=== PATIENT | female | born 1985 | race Caucasian/White ===

== ENCOUNTER 2018-12-08 12:55 | Emergency (ER) | payer OTHER ==
[~2018-12-08 12:55] MED LIST: ISOVUE-370 76%-LOCM 1 ML ONE
[2018-12-08 13:15] LABS: #Basophils 0.1 thou/uL (0.0-0.2); #Eosinphils 0.2 thou/uL (0.0-0.7); #Lymphocytes 2.5 thou/uL (1.20-3.40); #Monocytes 0.5 thou/uL (0.11-0.59); #Neutrophils 5.5 thou/uL (1.40-6.50); %Basophils 0.8 % (0.0-1.0); %Eosinophils 2.6 % (0.0-10.0); %Lymphocytes 28.6 % (21.0-51.0); %Monocytes 5.9 % (0.0-10.0); %Neutrophils 62.1 % (42.0-75.0); Hemoglobin 14.5 g/dL (12.0-16.0); Mean Corpuscular Hemoglobin 32.1 pg (27.0-31.0); Mean Corpuscular Volume 94.6 fL (78.0-98.0); Mean Platelet Volume 7.3 fL (7.4-10.4); Platelet Count 349 thou/uL (130-400); RBC Distribution Width 12.7 % (11.5-14.5); Red Blood Cell (RBC) Count 4.51 mill/uL (4.20-5.40); White Blood Cell (WBC) Count 8.8 thou/uL (4.8-10.8)
--- NOTE | 2018-12-08 13:22 | CT ---
FCT Brain WO Con: 12/08/2018 1:07 PM CLINICAL HISTORY: New onset stroke, altered mental status, dysarthria, blurred vision and right-sided weakness. COMPARISON: None. FINDINGS: Hemorrhage: None. Ventricular system: Normal in size and morphology for the patient's age. Cerebral parenchyma: Normal Midline shift: None. Calvarium: Normal. Visualized Paranasal sinuses: Mild mucosal prominence. IMPRESSION: No acute intracranial abnormalities. If symptoms persist, consider follow-up with brain MRI for more sensitive evaluation. Telephone call to Dr. Ontiveros, 1312 hours, 12/08/2018.
[2018-12-08 13:31] LABS: ALT (SGPT) 12 U/L (8-55); AST (SGOT) 11 U/L (5-34); Albumin 4.5 g/dL (3.5-5.0); Alkaline Phosphatase 61 U/L (40-150); Anion Gap 14 mmol/L (10-20); BUN (Urea Nitrogen) 10 mg/dL (7.0-18.7); Bilirubin, Total 0.4 mg/dL (0.2-1.2); Calc. Creatinine Clearance 0 mL/min (70-130); Calcium 9.7 mg/dL (7.8-10.44); Carbon Dioxide 26 mmol/L (22-29); Chloride 100 mmol/L (98-107); Estimated GFR-MDRD 87; Globulin 3.5 g/dL (2.4-3.5); Glucose 87 mg/dL (70-105); Potassium 3.2 mmol/L (3.5-5.1); Sodium 137 mmol/L (136-145)
--- NOTE | 2018-12-08 13:31 | CT ---
FCTA of the head with and without IV contrast and 3-D reformatted imaging. CTA of the neck with IV contrast and 3-D reformatted imaging 3 D Volume Rendering: DATE: 12/08/2018 1:07 PM HISTORY: Dysarthria, right-sided weakness COMPARISON: None FINDINGS: Right: CCA:No significant stenosis. ICA:No significant stenosis. MCA:No significant stenosis. ANAMARIA:No significant stenosis. SALES AND CATERING COORDINATOR:No significant stenosis. LEFT: CCA:No significant stenosis. ICA:No significant stenosis. MCA:No significant stenosis. ANAMARIA:No significant stenosis. SALES AND CATERING COORDINATOR:No significant stenosis. Vertebrobasilar System: Left Vertebral:No significant stenosis. Right Vertebral:No significant stenosis. Basilar:No significant stenosis. IMPRESSION: No hemodynamically significant stenosis, occlusion or aneurysmal dilation.
[2018-12-08] MEDS ORDERED: Acetaminophen 500 MG TAB ONE (13:33)
[2018-12-08] MEDS ORDERED: diphenhydrAMINE 50 MG/ML VIAL ONE (13:33)
[2018-12-08] MEDS ORDERED: Metoclopramide HCl 10 MG/2 ML VIAL ONE (13:33)
--- NOTE | 2018-12-09 15:30 | CT ---
FCTA of the head with and without IV contrast and 3-D reformatted imaging. CTA of the neck with IV contrast and 3-D reformatted imaging 3 D Volume Rendering: DATE: 12/08/2018 1:07 PM HISTORY: Dysarthria, right-sided weakness COMPARISON: None FINDINGS: Right: CCA:No significant stenosis. ICA:No significant stenosis. MCA:No significant stenosis. ANAMARIA:No significant stenosis. MOTEL FRONT DESK CLERK:No significant stenosis. LEFT: CCA:No significant stenosis. ICA:No significant stenosis. MCA:No significant stenosis. ANAMARIA:No significant stenosis. MOTEL FRONT DESK CLERK:No significant stenosis. Vertebrobasilar System: Left Vertebral:No significant stenosis. Right Vertebral:No significant stenosis. Basilar:No significant stenosis. IMPRESSION: No hemodynamically significant stenosis, occlusion or aneurysmal dilation. Transcribed Date/Time: 12/09/2018 3:29 PM
== END 2018-12-08 15:04 | disposition home or self-care (01) ==
LOC: ERS 12:55
DX: M54.2 Cervicalgia (principal); R51 Headache; I10 Essential (primary) hypertension; G43.809 Other migraine, not intractable, without status migrainosus; F17.210 Nicotine dependence, cigarettes, uncomplicated; F41.9 Anxiety disorder, unspecified; Z79.899 Other long term (current) drug therapy
CPT/HCPCS: 36416; 70450; 70496; 70498; 80053; 85025; 93005; 96361; 96374; 96375; J1200; J2765; Q9966

== ENCOUNTER 2020-04-28 06:51 | Day surgery (SDC) | payer OTHER ==
[2020-04-27 11:39] VITALS: BMI 22.6
[2020-04-28] MEDS ORDERED: Bacitracin Zinc Ointment 30 gm TUBE ONE (08:14)
[2020-04-28] MEDS ORDERED: Lidocaine 1% w/Epinephrine 1:100K 20 ML VIAL ONE (08:14)
[2020-04-28] MEDS ORDERED: Midazolam HCl 2 mg/2 ml Vial ONE (08:15)
[2020-04-28] MEDS ORDERED: Fentanyl 100 MCG/2 ML VIAL ONE ×7 (08:15→11:03)
[2020-04-28 08:20] LABS: Hemoglobin 14.3 g/dL (12.0-16.0)
[2020-04-28] MEDS ORDERED: Lidocaine 2% Jelly 5 ML TUBE ONE (08:23)
[2020-04-28 08:28] LABS: BHCG - Serum Negative (NEGATIVE); Pregs Control Background? CLEAR/WHITE (CLR/WHITE); Pregs Control Bar Appear? YES (CONTROL BAR)
[2020-04-28] MEDS ORDERED: Ondansetron PF 4 MG/2 ML Vial ONE (10:21)
[2020-04-28] MEDS ORDERED: Lidocaine 1% PF 5 ML VIAL ONE (10:21)
[2020-04-28] MEDS ORDERED: Dexamethasone 20 MG/5 ML VIAL ONE (10:21)
[2020-04-28] MEDS ORDERED: PROPOFOL 200 MG/20 ML VIAL ONE (10:21)
[2020-04-28] MEDS ORDERED: Promethazine HCl 25 MG/ML VIAL ONE (11:03)
[2020-04-28] MEDS ORDERED: Hydrocodone-Acetamin 15 ML UDCUP ONE (11:48)
[2020-04-28] MEDS ORDERED: Ibuprofen 800 MG TAB PO SCH (12:30)
--- NOTE | 2020-04-29 05:23 | OP ---
DATE OF PROCEDURE: 04/28/2020 PREOPERATIVE DIAGNOSIS: Severe left nasolabial abscess. POSTOPERATIVE DIAGNOSIS: Severe left nasolabial abscess. PROCEDURE PERFORMED: Incision and drainage with packing of left nasolabial abscess. PROCEDURE IN DETAIL: After consent was obtained, the patient was identified, brought to the operating room and placed on the operating room table in supine position. Mask anesthesia was obtained. The patient was positioned for surgery. The area was infiltrated with 1% lidocaine with 1:100,000 epinephrine and the abscess was entered transnasally and hemostats were spread down to the level of the nasolabial area. A small puncture was made intraorally to facilitate transoral drainage as well in the dependent portion of the abscess. Packing was then placed within the confines of the abscess with a small amount extruded from the nose. A sterile dressing was applied. Cultures were obtained. Job ID: [id number]
== END 2020-04-28 12:45 | disposition home or self-care (01) ==
LOC: SDC 06:51
PROVIDERS: ATTEND Specialist
PROC: 0H91XZZ Drainage of Face Skin, External Approach (ICD-10-PCS; principal; 2020-04-28)
DX: J34.0 Abscess, furuncle and carbuncle of nose (principal); J45.909 Unspecified asthma, uncomplicated; F17.210 Nicotine dependence, cigarettes, uncomplicated; F41.9 Anxiety disorder, unspecified; I10 Essential (primary) hypertension; Z79.899 Other long term (current) drug therapy
CPT/HCPCS: 36415; 84703; 85014; 85018; 87070; 87077; 87186; 87205; J1100; J2250; J2405; J2550; J2704; J3010; J3490

== ENCOUNTER 2020-11-14 00:10 | Observation (INO) | payer BC ==
[2020-11-14 01:55] LABS: #Basophils 0.1 thou/uL (0.0-0.2); #Eosinphils 0.2 thou/uL (0.0-0.7); #Lymphocytes 1.7 thou/uL (1.20-3.40); #Monocytes 0.6 thou/uL (0.11-0.59); #Neutrophils 6.1 thou/uL (1.40-6.50); %Basophils 0.8 % (0.0-1.0); %Eosinophils 2.8 % (0.0-10.0); %Lymphocytes 19.8 % (21.0-51.0); %Monocytes 6.5 % (0.0-10.0); %Neutrophils 70.1 % (42.0-75.0); Hemoglobin 13.5 g/dL (12.0-16.0); Mean Corpuscular Hemoglobin 31.8 pg (27.0-31.0); Mean Corpuscular Volume 93.6 fL (78.0-98.0); Mean Platelet Volume 7.1 fL (7.4-10.4); Platelet Count 368 thou/uL (130-400); RBC Distribution Width 11.6 % (11.5-14.5); Red Blood Cell (RBC) Count 4.24 mill/uL (4.20-5.40); White Blood Cell (WBC) Count 8.8 thou/uL (4.8-10.8)
[2020-11-14] MEDS ORDERED: Acetaminophen 650 MG Suppository PR PRN (02:02)
[2020-11-14] MEDS ORDERED: Ondansetron ODT 4 MG TAB PO PRN (02:02)
[2020-11-14] MEDS ORDERED: Acetaminophen 325 MG TAB PO PRN (02:02)
[2020-11-14] MEDS ORDERED: Electrolyte Replacement Protocol 1 EACH FS ONE (02:04)
[2020-11-14 02:07] VITALS: BMI 24.2
[2020-11-14 02:15] LABS: Anion Gap 11 mmol/L (10-20); BUN (Urea Nitrogen) 8 mg/dL (7.0-18.7); Calc. Creatinine Clearance 118 mL/min (70-130); Calcium 9.2 mg/dL (7.8-10.44); Carbon Dioxide 24 mmol/L (22-29); Chloride 105 mmol/L (98-107); Glucose 100 mg/dL (70-105); Sodium 136 mmol/L (136-145)
[2020-11-14] MEDS ORDERED: Electrolyte Replacement Protocol FS PRN (02:15)
[2020-11-14] MEDS: Phenazopyridine HCl 100 MG TAB PO SCH ×2 (04:33→12:07)
[2020-11-14 06:15] LABS: Bacteria/HPF None Seen HPF (None Seen); Bilirubin Negative (Negative); Blood, Urine Negative (Negative); Clarity Clear (Clear); Glucose, Urine (Dipstick) Normal (Negative); Ketone, Urine Negative (Negative); Leukocyte Negative Leu/uL (Negative); Nitrite Negative (Negative); Protein, Urine (Dipstick) Negative (Neg-Trace); RBC/HPF 0-3 HPF (0-3); Specific Gravity, Urine 1.022 (1.002-1.036); Squamous Epithelial None Seen HPF (0-3); Urobilinogen Normal mg/dL (Less than 2); WBC/HPF 0-3 HPF (0-3); pH, Urine 5.5 (5.0-9.0)
[2020-11-14 06:19] LABS: Urine Culture Reflex No No
[2020-11-14] MEDS ORDERED: Magnesium 2 GM/50 ML 2 GM in Premix Bag 1 BAG IVPB SCH (06:30)
[2020-11-14] MEDS ORDERED: Loperamide HCl 2 MG CAP PO PRN (10:40)
[2020-11-14] MEDS ORDERED: Loperamide HCl 2 MG CAP PO SCH (10:45)
[2020-11-14 13:00] LABS: SARS-CoV-2 PCR NAA for Saliva Not Detected (NotDetected)
[2020-11-14 15:14] VITALS: BP 117/79; TEMP 98.2
== END 2020-11-14 16:13 | disposition home or self-care (01) ==
LOC: 2NO 00:10
PROVIDERS: ADMIT Internal Medicine; ATTEND Family Medicine
DX: E87.6 Hypokalemia (principal); K52.9 Noninfective gastroenteritis and colitis, unspecified; R33.8 Other retention of urine; F41.9 Anxiety disorder, unspecified; F32.9 Major depressive disorder, single episode, unspecified; I10 Essential (primary) hypertension; K21.9 Gastro-esophageal reflux disease without esophagitis; J45.909 Unspecified asthma, uncomplicated; Z79.899 Other long term (current) drug therapy
CPT/HCPCS: 36415; 36416; 80048; 81001; 83735; 85025; 87324; 87449; 87635; 96374; G0378; J3475; U0003; U0005

== ENCOUNTER 2021-05-28 12:44 | Emergency (ER) | payer BC ==
[2021-05-28] MEDS ORDERED: Ketorolac Tromethamine 30 MG/ML VIAL ONE (14:15)
[2021-05-28] MEDS ORDERED: Cyclobenzaprine 10 MG TAB ONE (14:15)
== END 2021-05-28 15:24 | disposition home or self-care (01) ==
LOC: ERS 12:44
DX: M54.5 Low back pain (principal); M53.3 Sacrococcygeal disorders, not elsewhere classified; J45.909 Unspecified asthma, uncomplicated; I10 Essential (primary) hypertension; F17.210 Nicotine dependence, cigarettes, uncomplicated; G43.909 Migraine, unspecified, not intractable, without status migrainosus; Z79.899 Other long term (current) drug therapy; W18.30XA Fall on same level, unspecified, initial encounter
CPT/HCPCS: 72100; 96372; J1885

== ENCOUNTER 2021-06-05 08:35 | Emergency (ER) | payer BC ==
[2021-06-05] MEDS ORDERED: Iopamidol-370 76% 500 ML 1 ML ONE (09:50)
[2021-06-05] MEDS ORDERED: Morphine 4 MG/ML VIAL ONE ×2 (10:12→11:36)
[2021-06-05] MEDS ORDERED: Ondansetron PF 4 MG/2 ML Vial ONE (10:12)
[2021-06-05 10:14] LABS: #Eosinphils 0.2 thou/uL (0.0-0.7); #Lymphocytes 1.1 thou/uL (1.20-3.40); #Monocytes 0.4 thou/uL (0.11-0.59); #Neutrophils 3.3 thou/uL (1.40-6.50); %Basophils 0.9 % (0.0-1.0); %Eosinophils 3.8 % (0.0-10.0); %Lymphocytes 22.5 % (21.0-51.0); %Monocytes 7.5 % (0.0-10.0); %Neutrophils 65.3 % (42.0-75.0); Hemoglobin 12.5 g/dL (12.0-16.0); Mean Corpuscular HGB CONC 31.6 g/dL (32.0-36.0); Mean Corpuscular Hemoglobin 30.3 pg (27.0-31.0); Mean Corpuscular Volume 96.1 fL (78.0-98.0); Mean Platelet Volume 7.3 fL (7.4-10.4); Platelet Count 297 thou/uL (130-400); RBC Distribution Width 12.6 % (11.5-14.5); Red Blood Cell (RBC) Count 4.12 mill/uL (4.20-5.40); White Blood Cell (WBC) Count 5.1 thou/uL (4.8-10.8)
[2021-06-05 10:36] LABS: BHCG - Serum Negative (NEGATIVE); Pregs Control Background? CLEAR/WHITE (CLR/WHITE); Pregs Control Bar Appear? YES (CONTROL BAR)
[2021-06-05 10:37] LABS: Anion Gap 12 mmol/L (10-20); BUN (Urea Nitrogen) 10 mg/dL (7.0-18.7); Calc. Creatinine Clearance 0 mL/min (70-130); Carbon Dioxide 22 mmol/L (22-29); Chloride 105 mmol/L (98-107); Sodium 135 mmol/L (136-145)
[2021-06-05 10:38] LABS: Calcium 9.2 mg/dL (7.8-10.44); Glucose 91 mg/dL (70-105)
[2021-06-05] MEDS ORDERED: Ketorolac Tromethamine 30 MG/ML VIAL ONE (11:37)
== END 2021-06-05 13:38 | disposition home or self-care (01) ==
LOC: ERS 08:35
DX: M54.5 Low back pain (principal); M79.10 Myalgia, unspecified site; F17.210 Nicotine dependence, cigarettes, uncomplicated; I10 Essential (primary) hypertension; J45.909 Unspecified asthma, uncomplicated; G43.909 Migraine, unspecified, not intractable, without status migrainosus; Z79.899 Other long term (current) drug therapy; W18.30XA Fall on same level, unspecified, initial encounter
CPT/HCPCS: 36415; 74177; 80048; 84703; 85025; 96374; 96375; 96376; J1885; J2270; J2405; Q9967

== ENCOUNTER 2021-07-16 19:29 | Emergency (ER) | payer BC | END 2021-07-16 21:35 | disposition home or self-care (01) | LOC: ERS 19:29 | DX: K60.2 Anal fissure, unspecified (principal); G43.909 Migraine, unspecified, not intractable, without status migrainosus | CPT/HCPCS: 99283 ==

== ENCOUNTER 2021-08-06 19:26 | Emergency (ER) | payer BC ==
[2021-08-06 19:56] LABS: Bacteria/HPF 4+ HPF (None Seen); Bilirubin Negative (Negative); Blood, Urine Negative (Negative); Clarity Turbid (Clear); Glucose, Urine (Dipstick) Normal (Negative); Ketone, Urine Negative (Negative); Leukocyte 500 Leu/uL (Negative); Mucous/LPF Rare LPF (<2+); Nitrite Negative (Negative); Pregnancy Test - Urine (BHCG) Negative (Negative); Pregu Control Background? CLEAR/WHITE (CLR/WHITE); Pregu Control Bar Appear? YES (CONTROL BAR); Protein, Urine (Dipstick) Negative (Neg-Trace); Renal Epithelial 0-3 HPF (None Seen); Specific Gravity 1.016 (1.002-1.036); Specific Gravity, Urine 1.016 (1.002-1.036); Squamous Epithelial Greater than 50 HPF (0-3); Urobilinogen Normal mg/dL (Less than 2)
[2021-08-06] MEDS ORDERED: Ketorolac Tromethamine 30 MG/ML VIAL ONE (20:03)
[2021-08-06 20:12] LABS: #Eosinphils 0.2 thou/uL (0.0-0.7); #Lymphocytes 1.8 thou/uL (1.20-3.40); #Monocytes 0.4 thou/uL (0.11-0.59); %Basophils 0.2 % (0.0-1.0); %Eosinophils 2.2 % (0.0-10.0); %Lymphocytes 24.6 % (21.0-51.0); %Monocytes 5.1 % (0.0-10.0); %Neutrophils 67.9 % (42.0-75.0); Hemoglobin 12.1 g/dL (12.0-16.0); Mean Corpuscular HGB CONC 33.8 g/dL (32.0-36.0); Mean Corpuscular Hemoglobin 30.7 pg (27.0-31.0); Mean Corpuscular Volume 90.9 fL (78.0-98.0); Mean Platelet Volume 6.9 fL (7.4-10.4); Platelet Count 384 thou/uL (130-400); RBC Distribution Width 12.1 % (11.5-14.5); Red Blood Cell (RBC) Count 3.95 mill/uL (4.20-5.40); White Blood Cell (WBC) Count 7.3 thou/uL (4.8-10.8)
[2021-08-06 20:32] LABS: ALT (SGPT) 15 U/L (8-55); AST (SGOT) 15 U/L (5-34); Albumin 3.7 g/dL (3.5-5.0); Alkaline Phosphatase 54 U/L (40-110); Anion Gap 10 mmol/L (10-20); BUN (Urea Nitrogen) 6 mg/dL (7.0-18.7); Bilirubin, Total 0.3 mg/dL (0.2-1.2); Calc. Creatinine Clearance 0 mL/min (70-130); Calcium 9.2 mg/dL (7.8-10.44); Carbon Dioxide 24 mmol/L (22-29); Chloride 106 mmol/L (98-107); Globulin 2.7 g/dL (2.4-3.5); Glucose 126 mg/dL (70-105); Lipase 37 U/L (8-78); Potassium 3.1 mmol/L (3.5-5.1); Protein, Total 6.4 g/dL (6.0-8.3); Sodium 137 mmol/L (136-145)
[2021-08-06 20:33] LABS: BHCG - Serum Negative (NEGATIVE); Pregs Control Background? CLEAR/WHITE (CLR/WHITE); Pregs Control Bar Appear? YES (CONTROL BAR)
[2021-08-06] MEDS ORDERED: Morphine 4 MG/ML VIAL ONE (21:07)
== END 2021-08-06 21:35 | disposition home or self-care (01) ==
LOC: ERS 19:26
DX: N39.0 Urinary tract infection, site not specified (principal); G43.909 Migraine, unspecified, not intractable, without status migrainosus; Z79.899 Other long term (current) drug therapy
CPT/HCPCS: 36415; 74176; 80053; 81003; 81015; 81025; 83690; 84703; 85025; 87086; 96365; 96367; J1885; J2270

== ENCOUNTER 2021-10-06 14:08 | Outpatient (CLI) | payer BC | END 2021-10-06 14:09 | disposition home or self-care (01) | LOC: BICMAMMO 14:08 | PROVIDERS: ATTEND Nurse Practitioner Family | DX: N63.23 Unspecified lump in the left breast, lower outer quadrant (principal) | CPT/HCPCS: 77066; G0279 ==

== ENCOUNTER 2021-10-07 17:14 | Emergency (ER) | payer BC ==
[2021-10-07] MEDS ORDERED: Ketorolac Tromethamine 30 MG/ML VIAL ONE (17:48)
[2021-10-07] MEDS ORDERED: Metoclopramide HCl 10 MG/2 ML VIAL ONE (17:48)
[2021-10-07] MEDS ORDERED: diphenhydrAMINE 50 MG/ML VIAL ONE (17:48)
== END 2021-10-07 21:14 | disposition home or self-care (01) ==
LOC: ERS 17:14 → EEVIPCON 17:14 → ERS 21:14
DX: B34.9 Viral infection, unspecified (principal); G43.909 Migraine, unspecified, not intractable, without status migrainosus
CPT/HCPCS: 70450; 96365; 96375; J1200; J1885; J2765

== ENCOUNTER 2021-10-16 22:31 | Emergency (ER) | payer BC ==
[2021-10-17] MEDS ORDERED: diphenhydrAMINE 50 MG/ML VIAL ONE (00:34)
[2021-10-17 00:44] LABS: #Eosinphils 0.1 thou/uL (0.0-0.7); #Lymphocytes 1.1 thou/uL (1.20-3.40); #Monocytes 0.4 thou/uL (0.11-0.59); #Neutrophils 6.2 thou/uL (1.40-6.50); %Basophils 0.4 % (0.0-1.0); %Eosinophils 1.2 % (0.0-10.0); %Lymphocytes 13.7 % (21.0-51.0); %Monocytes 4.7 % (0.0-10.0); Hemoglobin 12.8 g/dL (12.0-16.0); Mean Corpuscular HGB CONC 33.2 g/dL (32.0-36.0); Mean Corpuscular Hemoglobin 28.9 pg (27.0-31.0); Mean Platelet Volume 7.3 fL (7.4-10.4); Platelet Count 279 thou/uL (130-400); RBC Distribution Width 13.4 % (11.5-14.5); Red Blood Cell (RBC) Count 4.44 mill/uL (4.20-5.40); White Blood Cell (WBC) Count 7.8 thou/uL (4.8-10.8)
[2021-10-17 00:50] LABS: BHCG - Serum Negative (NEGATIVE); Pregs Control Background? CLEAR/WHITE (CLR/WHITE); Pregs Control Bar Appear? YES (CONTROL BAR)
[2021-10-17 01:03] LABS: ALT (SGPT) 16 U/L (8-55); AST (SGOT) 20 U/L (5-34); Alkaline Phosphatase 52 U/L (40-110); Anion Gap 13 mmol/L (10-20); BUN (Urea Nitrogen) 4 mg/dL (7.0-18.7); Bilirubin, Total Less than 0.2 mg/dL (0.2-1.2); Calc. Creatinine Clearance 0 mL/min (70-130); Calcium 9.3 mg/dL (7.8-10.44); Carbon Dioxide 23 mmol/L (22-29); Chloride 105 mmol/L (98-107); Glucose 102 mg/dL (70-105); Potassium 3.5 mmol/L (3.5-5.1); Sodium 137 mmol/L (136-145)
[2021-10-17] MEDS ORDERED: HYDROcodone/Acetaminophen 5/325 mg Tablet ONE (02:00)
== END 2021-10-17 02:10 | disposition home or self-care (01) ==
LOC: ERS 22:31
DX: R07.9 Chest pain, unspecified (principal); R20.2 Paresthesia of skin; T50.995A Adverse effect of other drugs, medicaments and biological substances, initial encounter; G43.909 Migraine, unspecified, not intractable, without status migrainosus
CPT/HCPCS: 71045; 84484; 84703; 93005; 96374; J1200

== ENCOUNTER 2021-12-14 19:37 | Emergency (ER) | payer BC ==
[2021-12-14] MEDS ORDERED: Acetaminophen 500 MG TAB ONE (22:23)
[2021-12-14 22:58] LABS: #Eosinphils 0.3 thou/uL (0.0-0.7); #Lymphocytes 2.5 thou/uL (1.20-3.40); #Monocytes 0.6 thou/uL (0.11-0.59); #Neutrophils 3.3 thou/uL (1.40-6.50); %Basophils 0.4 % (0.0-1.0); %Eosinophils 3.8 % (0.0-10.0); %Lymphocytes 36.9 % (21.0-51.0); %Monocytes 9.3 % (0.0-10.0); %Neutrophils 49.6 % (42.0-75.0); Hemoglobin 10.9 g/dL (12.0-16.0); Mean Corpuscular HGB CONC 32.5 g/dL (32.0-36.0); Mean Corpuscular Hemoglobin 30.1 pg (27.0-31.0); Mean Corpuscular Volume 92.8 fL (78.0-98.0); Mean Platelet Volume 7.6 fL (7.4-10.4); Platelet Count 346 thou/uL (130-400); RBC Distribution Width 13.9 % (11.5-14.5); Red Blood Cell (RBC) Count 3.63 mill/uL (4.20-5.40); White Blood Cell (WBC) Count 6.7 thou/uL (4.8-10.8)
[2021-12-14 23:03] LABS: Bilirubin Negative (Negative); Blood, Urine Negative (Negative); Clarity Clear (Clear); Glucose, Urine (Dipstick) Normal (Negative); Ketone, Urine Trace mg/dL (Negative); Leukocyte Negative Leu/uL (Negative); Nitrite Negative (Negative); Protein, Urine (Dipstick) 10 mg/dL (Neg-Trace); pH, Urine 6.5 (5.0-9.0)
[2021-12-14 23:04] LABS: Pregnancy Test - Urine (BHCG) Negative (Negative); Pregu Control Background? CLEAR/WHITE (CLR/WHITE); Pregu Control Bar Appear? YES (CONTROL BAR)
[2021-12-14 23:15] LABS: ALT (SGPT) Less than 7 U/L (8-55); AST (SGOT) 12 U/L (5-34); Alkaline Phosphatase 51 U/L (40-110); Anion Gap 12 mmol/L (10-20); BUN (Urea Nitrogen) 12 mg/dL (7.0-18.7); Bilirubin, Total Less than 0.2 mg/dL (0.2-1.2); Calc. Creatinine Clearance 0 mL/min (70-130); Calcium 9.2 mg/dL (7.8-10.44); Carbon Dioxide 22 mmol/L (22-29); Chloride 107 mmol/L (98-107); Globulin 2.6 g/dL (2.4-3.5); Glucose 91 mg/dL (70-105); Lipase 45 U/L (8-78); Potassium 3.8 mmol/L (3.5-5.1); Protein, Total 6.6 g/dL (6.0-8.3); Sodium 137 mmol/L (136-145)
== END 2021-12-15 00:11 | disposition home or self-care (01) ==
LOC: ERS 19:37
DX: K59.00 Constipation, unspecified (principal); Z87.891 Personal history of nicotine dependence
CPT/HCPCS: 36415; 80053; 81003; 81025; 83690; 85025; 99283

== ENCOUNTER 2022-04-10 14:28 | Emergency (ER) | payer BC ==
[~2022-04-10 14:28] MED LIST changes: -ISOVUE-370 76%-LOCM 1 ML ONE; +Iopamidol-370 76% 500 ML 1 ML ONE
[2022-04-10 15:34] LABS: #Basophils 0.1 thou/uL (0.0-0.2); #Eosinphils 0.2 thou/uL (0.0-0.7); #Lymphocytes 1.8 thou/uL (1.20-3.40); #Monocytes 0.6 thou/uL (0.11-0.59); #Neutrophils 4.1 thou/uL (1.40-6.50); %Basophils 0.8 % (0.0-1.0); %Eosinophils 3.6 % (0.0-10.0); %Lymphocytes 26.5 % (21.0-51.0); %Monocytes 8.9 % (0.0-10.0); %Neutrophils 60.2 % (42.0-75.0); Hemoglobin 12.1 g/dL (12.0-16.0); Mean Corpuscular HGB CONC 33.2 g/dL (32.0-36.0); Mean Corpuscular Hemoglobin 29.3 pg (27.0-31.0); Mean Corpuscular Volume 88.4 fL (78.0-98.0); Mean Platelet Volume 7.7 fL (7.4-10.4); Platelet Count 409 thou/uL (130-400); RBC Distribution Width 13.5 % (11.5-14.5); Red Blood Cell (RBC) Count 4.12 mill/uL (4.20-5.40); White Blood Cell (WBC) Count 6.8 thou/uL (4.8-10.8)
[2022-04-10 15:37] LABS: BHCG - Serum Negative (NEGATIVE); Pregs Control Background? CLEAR/WHITE (CLR/WHITE); Pregs Control Bar Appear? YES (CONTROL BAR)
[2022-04-10 15:51] LABS: ALT (SGPT) 10 U/L (8-55); AST (SGOT) 14 U/L (5-34); Albumin 4.7 g/dL (3.5-5.0); Alkaline Phosphatase 51 U/L (40-110); Anion Gap 15 mmol/L (10-20); BUN (Urea Nitrogen) 11 mg/dL (7.0-18.7); Bilirubin, Total 0.4 mg/dL (0.2-1.2); Calc. Creatinine Clearance 0 mL/min (70-130); Calcium 9.9 mg/dL (7.8-10.44); Carbon Dioxide 23 mmol/L (22-29); Chloride 103 mmol/L (98-107); Estimated GFR 95; Globulin 3.4 g/dL (2.4-3.5); Glucose 84 mg/dL (70-105); Lipase 21 U/L (8-78); Potassium 3.9 mmol/L (3.5-5.1); Protein, Total 8.1 g/dL (6.0-8.3); Sodium 137 mmol/L (136-145)
[2022-04-10 17:27] LABS: Bilirubin Negative (Negative); Blood, Urine Negative (Negative); Clarity Clear (Clear); Glucose, Urine (Dipstick) Normal (Negative); Ketone, Urine Negative (Negative); Leukocyte Negative Leu/uL (Negative); Nitrite Negative (Negative); Protein, Urine (Dipstick) Negative (Neg-Trace); Specific Gravity, Urine 1.015 (1.002-1.036); Urobilinogen Normal mg/dL (Less than 2); pH, Urine 5.5 (5.0-9.0)
[2022-04-10 17:30] LABS: Pregnancy Test - Urine (BHCG) Negative (Negative); Pregu Control Background? CLEAR/WHITE (CLR/WHITE); Pregu Control Bar Appear? YES (CONTROL BAR); Specific Gravity 1.015 (1.002-1.036)
[2022-04-10] MEDS ORDERED: Dicyclomine 20 MG TAB ONE (18:28)
[2022-04-10] MEDS ORDERED: Ketorolac Tromethamine 30 MG/ML VIAL ONE (18:28)
[2022-04-10] MEDS ORDERED: Ondansetron PF 4 MG/2 ML Vial ONE (18:29)
== END 2022-04-10 18:55 | disposition home or self-care (01) ==
LOC: ERS 14:28
DX: R10.32 Left lower quadrant pain (principal); R19.7 Diarrhea, unspecified; R10.814 Left lower quadrant abdominal tenderness; Z87.891 Personal history of nicotine dependence
CPT/HCPCS: 36415; 74177; 80053; 81003; 81025; 83690; 84703; 85025; 94760; 96374; 96375; J1885; J2405; Q9967

== ENCOUNTER 2022-10-26 12:33 | Inpatient (IN) | payer BC ==
[2022-10-26] MEDS ORDERED: Acetaminophen 325 MG TAB PO PRN (17:39)
[2022-10-26] MEDS ORDERED: HYDROmorphone 0.5 MG/0.5 ML SYRINGE SLOW IVP SCH (18:00)
[2022-10-26] MEDS ORDERED: Lidocaine 2% Viscous Solution 10 ML, Aluminum & Magnesium Hydroxide 30 ML SSW SCH (18:00)
[2022-10-26] MEDS ORDERED: Ketorolac Tromethamine 30 MG/ML VIAL IVP SCH (18:15)
[2022-10-26] MEDS ORDERED: diphenhydrAMINE 25 MG CAP PO PRN (18:38)
[2022-10-26 19:34] VITALS: BMI 24.7
[2022-10-26] MEDS: clonazePAM 0.5 MG TAB PO SCH (20:25)
[2022-10-26] MEDS: Nebivolol HCl 5 MG TAB PO SCH (20:25)
[2022-10-27] MEDS ORDERED: Ketorolac Tromethamine 30 MG/ML VIAL IVP SCH (01:00)
[2022-10-27 05:23] LABS: #Eosinphils 0.1 thou/uL (0.0-0.7); #Lymphocytes 2.1 thou/uL (1.20-3.40); #Monocytes 0.5 thou/uL (0.11-0.59); #Neutrophils 2.9 thou/uL (1.40-6.50); %Basophils 0.4 % (0.0-1.0); %Eosinophils 2.4 % (0.0-10.0); %Lymphocytes 37.3 % (21.0-51.0); %Monocytes 8.6 % (0.0-10.0); %Neutrophils 51.3 % (42.0-75.0); Hemoglobin 12.5 g/dL (12.0-16.0); Mean Corpuscular HGB CONC 33.9 g/dL (32.0-36.0); Mean Corpuscular Hemoglobin 30.4 pg (27.0-31.0); Mean Corpuscular Volume 89.7 fl (78.0-98.0); Mean Platelet Volume 7.7 fL (7.4-10.4); Platelet Count 276 10x3/uL (130-400); Red Blood Cell (RBC) Count 4.11 mill/uL (4.20-5.40); White Blood Cell (WBC) Count 5.6 10x3/uL (4.8-10.8)
[2022-10-27 05:40] LABS: Anion Gap 10 mmol/L (10-20); BUN (Urea Nitrogen) 4 mg/dL (7.0-18.7); Calc. Creatinine Clearance 113 mL/min (70-130); Calcium 9.2 mg/dL (7.8-10.44); Carbon Dioxide 29 mmol/L (22-29); Chloride 106 mmol/L (98-107); Estimated GFR 106; Glucose 96 mg/dL (70-105); Potassium 3.7 mmol/L (3.5-5.1); Sodium 141 mmol/L (136-145)
[2022-10-27] MEDS: Nebivolol HCl 5 MG TAB PO SCH ×2 (08:09→21:01)
[2022-10-27] MEDS: clonazePAM 0.5 MG TAB PO SCH ×3 (08:10→21:01)
[2022-10-27] MEDS: Morphine 4 MG/ML VIAL SLOW IVP PRN ×2 (08:12→21:03)
[2022-10-27] MEDS ORDERED: Ondansetron PF 4 MG/2 ML Vial IVP SCH (11:15)
[2022-10-27] MEDS ORDERED: Fluticasone Propionate Nasal Spray 16 gm Bottle NASAL SCH (11:15)
[2022-10-27] MEDS ORDERED: guaiFENesin ER 600 MG TAB PO SCH (11:15)
[2022-10-27] MEDS ORDERED: HYDROmorphone 0.5 MG/0.5 ML SYRINGE SLOW IVP SCH (12:00)
[2022-10-27] MEDS: Ketorolac Tromethamine 30 MG/ML VIAL IVP PRN (17:47)
[2022-10-27] MEDS: guaiFENesin ER 600 MG TAB PO SCH (21:01)
[2022-10-27] MEDS: Fluticasone Propionate Nasal Spray 16 gm Bottle NASAL SCH (21:02)
[2022-10-27] MEDS: Ondansetron PF 4 MG/2 ML Vial IVP PRN (21:03)
[2022-10-27] MEDS ORDERED: traMADol HCl 50 MG TAB PO SCH (23:45)
[2022-10-27] MEDS ORDERED: Dicyclomine 10 MG CAP PO SCH (23:45)
[2022-10-27] MEDS ORDERED: Lidocaine 2% Viscous Solution 20 ML, Aluminum & Magnesium Hydroxide 30 ML, Donnatal Eli... SSW SCH (23:59)
[2022-10-28] MEDS: Ondansetron PF 4 MG/2 ML Vial IVP PRN (05:46)
[2022-10-28] MEDS: Morphine 4 MG/ML VIAL SLOW IVP PRN (05:46)
[2022-10-28 05:51] LABS: #Eosinphils 0.2 thou/uL (0.0-0.7); #Monocytes 0.4 thou/uL (0.11-0.59); #Neutrophils 1.8 thou/uL (1.40-6.50); %Eosinophils 4.3 % (0.0-10.0); %Lymphocytes 44.5 % (21.0-51.0); %Monocytes 10.1 % (0.0-10.0); %Neutrophils 41.1 % (42.0-75.0); Mean Corpuscular HGB CONC 33.7 g/dL (32.0-36.0); Mean Platelet Volume 7.9 fL (7.4-10.4); Platelet Count 248 10x3/uL (130-400); RBC Distribution Width 12.9 % (11.5-14.5); Red Blood Cell (RBC) Count 3.66 mill/uL (4.20-5.40); White Blood Cell (WBC) Count 4.4 10x3/uL (4.8-10.8)
[2022-10-28 06:17] LABS: Anion Gap 9 mmol/L (10-20); BUN (Urea Nitrogen) 5 mg/dL (7.0-18.7); Calc. Creatinine Clearance 133 mL/min (70-130); Calcium 8.6 mg/dL (7.8-10.44); Carbon Dioxide 26 mmol/L (22-29); Chloride 106 mmol/L (98-107); Estimated GFR 116; Glucose 90 mg/dL (70-105); Potassium 3.3 mmol/L (3.5-5.1); Sodium 138 mmol/L (136-145)
[2022-10-28 08:04] VITALS: BP 118/80; TEMP 97.8
[2022-10-28] MEDS: clonazePAM 0.5 MG TAB PO SCH (08:13)
[2022-10-28] MEDS: Ketorolac Tromethamine 30 MG/ML VIAL IVP PRN (08:14)
[2022-10-28] MEDS: guaiFENesin ER 600 MG TAB PO SCH (08:14)
[2022-10-28] MEDS: Nebivolol HCl 5 MG TAB PO SCH (08:14)
[2022-10-28] MEDS: Fluticasone Propionate Nasal Spray 16 gm Bottle NASAL SCH (08:15)
[2022-10-28] MEDS ORDERED: Potassium Chloride 20 MEQ TAB PO SCH (09:00)
[2022-10-28] MEDS ORDERED: Iopamidol-370 76% 500 ML 1 ML ONE (10:00)
== END 2022-10-28 11:31 | disposition home or self-care (01) | DRG 179 ==
LOC: 2SW 16:50 → OBSVTOIN 17:38
PROVIDERS: ADMIT Internal Medicine; ATTEND Internal Medicine
DX: U07.1 COVID-19 (principal); R94.31 Abnormal electrocardiogram [ECG] [EKG]; E87.6 Hypokalemia; R79.89 Other specified abnormal findings of blood chemistry; F41.9 Anxiety disorder, unspecified; F32.A Depression, unspecified; Z79.899 Other long term (current) drug therapy; Z87.891 Personal history of nicotine dependence
CPT/HCPCS: 36415; 71275; 80048; 84145; 84443; 85025; 85379; 85652; 86140; 87040; 93306; J1170; J1650; J1885; J2270; J2405; Q9967

== ENCOUNTER 2023-02-26 10:41 | Outpatient (CLI) | payer BC | END 2023-02-26 10:42 | disposition home or self-care (01) | LOC: BICMRI 10:41 | PROVIDERS: ATTEND Nurse Practitioner Family | DX: M54.2 Cervicalgia (principal); M48.02 Spinal stenosis, cervical region | CPT/HCPCS: 72141 ==